=== PATIENT | female | born 1950 ===

== ENCOUNTER 2021-01-14 09:44 | Outpatient (CLI) | payer OTHER ==
[~2021-01-14 09:44] MED LIST: INDERAL LA80 MG; KLONOPIN2 MG/TAB; SYNTHROID50 MCG; ZOCOR5 MG
== END 2021-01-14 09:52 | disposition home or self-care (01) ==
LOC: SONOGRAMA 09:44 → MAMO-SONO 09:45 → SONOGRAMA 09:52
DX: R22.1 Localized swelling, mass and lump, neck (principal)

== ENCOUNTER 2021-02-26 10:54 | Outpatient (CLI) | payer OTHER | END 2021-02-26 11:11 | disposition home or self-care (01) | LOC: MAMO-SONO 10:54 | DX: N64.59 Other signs and symptoms in breast (principal); I51.7 Cardiomegaly; M15.0 Primary generalized (osteo)arthritis; Z12.31 Encounter for screening mammogram for malignant neoplasm of breast ==